=== PATIENT | female | born 1990 | race Caucasian/White ===

== ENCOUNTER 2016-05-20 15:36 | Emergency (ER) | payer SELFPAY ==
--- NOTE | 2016-05-20 16:03 | ER Document Report ---
ED Medical Screen (RME) - General Stated Complaint: BLURRY VISION Mode of Arrival: Ambulatory Information source: Patient Notes: Patient complains of blurred vision for the past week. Patient states that blurred vision has gradually started to worsen. Patient states that eyes have been injected. Vision is worse to right eye. Patient reports a large dark spot in the field of vision of the right eye. Patient denies any headache pain. Patient came at the insistence of family member. hx: None I have greeted and performed a rapid initial assessment of this patient. A comprehensive ED assessment and evaluation of the patient, analysis of test results and completion of the medical decision making process will be conducted by additional ED providers. TRAVEL OUTSIDE OF THE [place] IN LAST 30 DAYS: No - Related Data Allergies/Adverse Reactions: No Known Allergies Allergy (Verified 12/18/15 19:30) Past Medical History - Past Medical History Cardiac Medical History: Reports: Hx Hypertension - PIH first preg Denies: Hx Heart Murmur Renal/ Medical History: Denies: Hx Kidney Stones, Hx Ovarian Cysts, Hx Pelvic Inflammatory Disease Malignancy Medical History: Denies: Hx Breast Cancer, Hx Cervical Cancer, Hx Ovarian Cancer GI Medical History: Reports: Hx Gastroesophageal Reflux Disease. Denies: Hx Hiatal Hernia, Hx Ulcer Musculoskeltal Medical History: Denies Hx Fibromyalgia Traumatic Medical History: Reports: Hx Fractures - hx right radius Past Surgical History: Reports: Hx Section - x 1, Hx Oral Surgery - Immunizations Hx Diphtheria, Pertussis, Tetanus Vaccination: Yes Physical Exam - Vital signs Vitals: Temp Pulse Resp BP Pulse Ox 98.6 F 70 16 116/86 H 99 05/20/16 15:43 05/20/16 15:43 05/20/16 15:43 05/20/16 15:43 05/20/16 15:43 - HEENT Eyes: Normal. No: Tears Conjunctiva: Injected - Mild injected Course - Vital Signs Vital signs: Temp Pulse Resp BP Pulse Ox 98.6 F 70 16 116/86 H 99 05/20/16 15:43 05/20/16 15:43 05/20/16 15:43 05/20/16 15:43 05/20/16 15:43
[2016-05-20] MEDS ORDERED: TETRACAINE HCL 0.5% OPH SOLN 2 ML OU ONE (19:05)
--- NOTE | 2016-05-20 19:50 | ER Document Report ---
ED Eye Complaint - General Chief Complaint: Vision Problem Stated Complaint: BLURRY VISION Mode of Arrival: Ambulatory Notes: Patient is a 25-year-old female presents emergency Department complaining of vision loss in her right eye. Patient states that if over the past 7 days she has had blurry vision in both of her eyes but worse in the right and has gotten worse over the past couple of days now with a dark spot in her right upper quadrant vision field. Patient states that she is able to see out of her right eye and is able to distinguish shapes and words but has difficulty focusing. Otherwise she denies any pain on both eyes. She is not a contact wearer or glasses wearer. Last follow-up with ophthalmology was about 3 years ago. She denies any headache or associated pain but does admit to tenderness. She does have redness in both of her eyes and she's been using Visine which she states has been helping. Otherwise she denies any other past medical history. Has a history of 2. Does not appear primary care provider TRAVEL OUTSIDE OF THE [place] IN LAST 30 DAYS: No - Related Data Allergies/Adverse Reactions: No Known Allergies Allergy (Verified 12/18/15 19:30) Past Medical History - General Information source: Patient - Social History Smoking Status: Never Smoker Family History: Reviewed & Not Pertinent Patient has suicidal ideation: No Patient has homicidal ideation: No - Past Medical History Cardiac Medical History: Reports: Hx Hypertension - PIH first preg Denies: Hx Heart Murmur Renal/ Medical History: Denies: Hx Kidney Stones, Hx Ovarian Cysts, Hx Peritoneal Dialysis, Hx Pelvic Inflammatory Disease Malignancy Medical History: Denies: Hx Breast Cancer, Hx Cervical Cancer, Hx Ovarian Cancer GI Medical History: Reports: Hx Gastroesophageal Reflux Disease. Denies: Hx Hiatal Hernia, Hx Ulcer Musculoskeltal Medical History: Denies Hx Fibromyalgia Traumatic Medical History: Reports: Hx Fractures - hx right radius Past Surgical History: Reports: Hx Section - x 1, Hx Oral Surgery - Immunizations Hx Diphtheria, Pertussis, Tetanus Vaccination: Yes Hx Pneumococcal Vaccination: 04/13/00 Review of Systems - Review of Systems EENT: See HPI Physical Exam - Vital signs Vitals: Temp Pulse Resp BP Pulse Ox 98.6 F 70 16 116/86 H 99 05/20/16 15:43 05/20/16 15:43 05/20/16 15:43 05/20/16 15:43 05/20/16 15:43 - HEENT Head: Normocephalic, Atraumatic Eyes: Normal Conjunctiva: Injected Cornea: Normal - Bilateral. No: Corneal abrasion, Corneal ulcer, Embedded foreign body, Flourescein stain uptake Extraocular movements intact: Yes Eyelashes: Normal Pupils: PERRL Visual acuity- Right eye: 20/50 Visual acuity- Left eye: 20/40 Visual acuity- Both eyes: 20/40 Corrective lenses worn: No Right intraocular pressure: 26 Left intraocular pressure: 18 Lids everted for exam: bilateral: Normal Anterior chamber: Normal Fundascopic: Normal. No: Retinal detachment, Retinal hemorrhage Visual hawk normal: Yes Course - Re-evaluation Re-evalutation: 05/20/16 22:43 Patient is a 25-year-old female presents emergency Department complaining of vision loss that is painless. Patient's history and physical exam did not reveal any evidence of retinal detachment, acute closure glaucoma, corneal abrasion/ulcer or conjunctivitis. Patient discharged home and instructed to follow-up with Dr. Forman tomorrow morning at 9 AM. For evaluation of retinal blood supply. Per [facility] protocol and guidelines, this case was discussed with supervising physician Dr. Ruiz penny prior to discharge - Vital Signs Vital signs: Temp Pulse Resp BP Pulse Ox 98.7 F 67 16 112/76 98 05/20/16 20:45 05/20/16 20:45 05/20/16 20:45 05/20/16 20:45 05/20/16 20:45 Discharge - Discharge Clinical Impression: Vision loss, right eye Condition: Good Disposition: HOME, SELF-CARE Additional Instructions: Please follow up with Dr. Forman tomorrow for complete ophthalmologic evaluation Referrals: GIBSON FORMAN MD [ACTIVE STAFF] - Follow up as needed (please follow up at 9am tomorromw 05/21/2016)
[2016-05-20 20:47] VITALS: BP 112/76
== END 2016-05-20 20:40 | disposition home or self-care (01) ==
LOC: ER 15:36
DX: H54.61 Unqualified visual loss, right eye, normal vision left eye (principal); H53.8 Other visual disturbances
CPT/HCPCS: 99283

== ENCOUNTER → 2016-05-22 | Outpatient (CLI) | payer SELFPAY ==
[2016-05-22 11:27] LABS: ABSOLUTE EOSINOPHILS # (AUTO) 0.1 10^3/uL (0.0-0.6); ABSOLUTE LYMPHOCYTES (AUTO) 1.9 10^3/uL (0.5-4.7); ABSOLUTE MONOCYTES (AUTO) 0.4 10^3/uL (0.1-1.4); ABSOLUTE NEUT (AUTO) 4.8 10^3/uL (1.7-8.2); BASOPHILS % (AUTO) 0.2 % (0-2); EOSINOPHILS % (AUTO) 1.9 % (0-6); HEMATOCRIT 44.4 % (36.0-47.0); HEMOGLOBIN 15.2 g/dL (12.0-15.5); HGB HCT DIFFERENCE 1.2; LYMPHOCYTES % (AUTO) 26.5 % (13-45); MEAN CORPUSCULAR HEMOGLOBIN 29.4 pg (27.0-33.4); MEAN CORPUSCULAR HGB CONC 34.3 g/dL (32.0-36.0); MEAN CORPUSCULAR VOLUME 86 fl (80-97); MONOCYTES % (AUTO) 6.1 % (3-13); RED BLOOD COUNT 5.18 10^6/uL (3.72-5.28); RED CELL DISTRIBUTION WIDTH 13.1 % (11.5-14.0); SEGMENTED NEUTROPHILS % (AUTO) 65.3 % (42-78); WHITE BLOOD COUNT 7.3 10^3/uL (4.0-10.5)
[2016-05-22 11:42] LABS: ALANINE AMINOTRANSFERASE 48 U/L (9-52); ALBUMIN 4.9 g/dL (3.5-5.0); ALKALINE PHOSPHATASE 59 U/L (38-126); ANION GAP 10 (5-19); ASPARTATE AMINO TRANSFERASE 31 U/L (14-36); BILIRUBIN,TOTAL 0.9 mg/dL (0.2-1.3); BLOOD UREA NITROGEN 12 mg/dL (7-20); CALCIUM 9.8 mg/dL (8.4-10.2); CARBON DIOXIDE 26 mmol/L (22-30); CHLORIDE 106 mmol/L (98-107); CREATININE RESULT 0.77 mg/dL (0.52-1.25); GLUCOSE 95 mg/dL (75-110); POTASSIUM 4.3 mmol/L (3.6-5.0); SODIUM 141.7 mmol/L (137-145); TOTAL PROTEIN 7.5 g/dL (6.3-8.2)
[2016-05-23 12:28] LABS: ANGIOTENSIN-CONVERTING ENZYME 28 U/L (14-82)
[2016-05-23 13:38] LABS: BARTONELLA HENSELAE IGG Negative titer (Neg:<1:320); BARTONELLA HENSELAE IGM Negative titer (Neg:<1:100)
[2016-05-23 14:21] LABS: BARTONELLA QUINTANA IGM Negative titer (Neg:<1:100)
[2016-05-23 14:22] LABS: LYME DISEASE IGG AND IGM AB <0.91 ISR (0.00-0.90)
[2016-05-28 13:38] LABS: QUANTIFERON TB ANTIGEN VALUE 0.28 IU/mL (.); QUANTIFERON TB NIL VALUE 0.11 IU/mL (.)
== END ==
LOC: LAB 10:57
PROVIDERS: ATTEND Ophthalmology
DX: H54.7 Unspecified visual loss (principal)
CPT/HCPCS: 36415; 80053; 82164; 85025; 86317; 86430; 86480; 86592; 86617; 86618

== ENCOUNTER 2016-11-19 19:08 | Emergency (ER) | payer SELFPAY ==
[2016-11-19] MEDS ORDERED: PENICILLIN V POTASSIUM 500 MG TABLET PO ONE (20:00)
--- NOTE | 2016-11-19 20:06 | ER Document Report ---
HPI - HPI Patient complains to provider of: sore throat Pain Level: 2 Context: 26 yo female c/o sore throat x 3 days. no fever, no cough, no post nasal drip. + left ear pain and swollen lymph nodes Associated Symptoms: None Exacerbated by: Denies Relieved by: Denies Similar symptoms previously: No Recently seen / treated by doctor: No - ROS Systems Reviewed and Negative: Yes All other systems reviewed and negative - REPRODUCTIVE Reproductive: REPORTS: : - DERM Skin Color: Normal, [place] Past Medical History - General Information source: Patient - Social History Smoking Status: Never Smoker Frequency of alcohol use: None Drug Abuse: None Lives with: Family Family History: Reviewed & Not Pertinent Patient has suicidal ideation: No Patient has homicidal ideation: No - Medical History Medical History: Other - VKH - opthomologic disease - Past Medical History Cardiac Medical History: Reports: Hx Hypertension - PIH first preg Denies: Hx Heart Murmur Renal/ Medical History: Denies: Hx Kidney Stones, Hx Ovarian Cysts, Hx Peritoneal Dialysis, Hx Pelvic Inflammatory Disease Malignancy Medical History: Denies: Hx Breast Cancer, Hx Cervical Cancer, Hx Ovarian Cancer GI Medical History: Reports: Hx Gastroesophageal Reflux Disease. Denies: Hx Hiatal Hernia, Hx Ulcer Musculoskeltal Medical History: Denies Hx Fibromyalgia Traumatic Medical History: Reports: Hx Fractures - hx right radius Past Surgical History: Reports: Hx Section - x 1, Hx Oral Surgery - Immunizations Hx Diphtheria, Pertussis, Tetanus Vaccination: Yes Hx Pneumococcal Vaccination: 04/13/00 Vertical Provider Document - CONSTITUTIONAL Agree With Documented VS: Yes Exam Limitations: No Limitations General Appearance: WD/WN - INFECTION CONTROL TRAVEL OUTSIDE OF THE [place] IN LAST 30 DAYS: No - HEENT HEENT: Atraumatic, PERRLA, Pharyngeal Exudate, Pharyngeal Tenderness, Pharyngeal Erythema - NECK Neck: Lymphadenopathy-Left - post auricular nodes - RESPIRATORY Respiratory: Breath Sounds Normal, No Respiratory Distress O2 Sat by Pulse Oximetry: 100 - CARDIOVASCULAR Cardiovascular: Regular Rate, Regular Rhythm - MUSCULOSKELETAL/EXTREMETIES Musculoskeletal/Extremeties: MAEW - NEURO Level of Consciousness: Awake, Alert, Appropriate - DERM Integumentary: Warm, Dry Course - Vital Signs Vital signs: Temp Pulse Resp BP Pulse Ox 98.9 F 70 15 133/73 H 100 11/19/16 19:27 11/19/16 19:27 11/19/16 19:27 11/19/16 19:27 11/19/16 19:27 Discharge - Discharge Clinical Impression: Sore throat Condition: Stable Disposition: HOME, SELF-CARE Instructions: Sore Throat ([facility] [place]), Penicillin V K ([facility]) Additional Instructions: Take all antibiotic as prescribed lozenges salt water gargles change toothbrush in 2 days Prescriptions: Fluconazole [Diflucan] 150 mg PO ONCE PRN #1 tablet PRN Reason: Penicillin V Potassium 500 mg PO BID #20 tablet
[2016-11-19 22:43] VITALS: BP 118/78
== END 2016-11-19 20:25 | disposition home or self-care (01) ==
LOC: ER 19:08
DX: O99.519 Diseases of the respiratory system complicating pregnancy, unspecified trimester (principal); J02.9 Acute pharyngitis, unspecified; O26.899 Other specified pregnancy related conditions, unspecified trimester; H92.02 Otalgia, left ear; R56.9 Unspecified convulsions; Z3A.00 Weeks of gestation of pregnancy not specified
CPT/HCPCS: 99282

== ENCOUNTER 2017-02-22 17:15 | Emergency (ER) | payer SELFPAY ==
[2017-02-22 17:21] VITALS: BP 115/77
--- NOTE | 2017-02-22 18:31 | ER Document Report ---
HPI - HPI Patient complains to provider of: Runny nose, sore throat, dry cough Pain Level: 3 Context: Patient is a 26-year-old female patient presents to the emergency department complaining of sinus congestion, sore throat, dry cough for approximately 1 week. States she moved into a new house and since then has been having the symptoms. She states that her kids have also been sick at home and she want to be evaluated to make sure she had a strep throat. She thinks that she can see exudates on her left tonsil. Otherwise denies any fever, chills, difficulty swallowing, difficulty breathing, chest pain, nausea or vomiting. - REPRODUCTIVE Reproductive: REPORTS: : - DERM Skin Color: Normal Past Medical History - Social History Smoking Status: Never Smoker Chew tobacco use (# tins/day): No Frequency of alcohol use: Occasional Drug Abuse: None Family History: Reviewed & Not Pertinent Patient has suicidal ideation: No Patient has homicidal ideation: No - Past Medical History Cardiac Medical History: Reports: Hx Hypertension - PIH first preg Denies: Hx Heart Murmur Renal/ Medical History: Denies: Hx Kidney Stones, Hx Ovarian Cysts, Hx Peritoneal Dialysis, Hx Pelvic Inflammatory Disease Malignancy Medical History: Denies: Hx Breast Cancer, Hx Cervical Cancer, Hx Ovarian Cancer GI Medical History: Reports: Hx Gastroesophageal Reflux Disease. Denies: Hx Hiatal Hernia, Hx Ulcer Musculoskeltal Medical History: Denies Hx Fibromyalgia Traumatic Medical History: Reports: Hx Fractures - hx right radius Past Surgical History: Reports: Hx Section - x 1, Hx Oral Surgery - Immunizations Hx Diphtheria, Pertussis, Tetanus Vaccination: Yes Hx Pneumococcal Vaccination: 04/13/00 Vertical Provider Document - CONSTITUTIONAL Agree With Documented VS: Yes Exam Limitations: No Limitations General Appearance: WD/WN, No Apparent Distress Notes: PHYSICAL EXAM GENERAL: Alert, interacts well. HEAD: Normocephalic, atraumatic. EYES: Pupils equal, round, and reactive to light. Extraocular movements intact. ENT: Oral mucosa moist, tongue midline. Uvula midline. Airway patent. No evidence of tonsillar enlargement, peritonsillar abscess. NECK: Full range of motion. Supple. Trachea midline. LUNGS: Clear to auscultation bilaterally, no wheezes, rales, or rhonchi. No respiratory distress. HEART: Regular rate and rhythm. No murmurs, gallops, or rubs. ABDOMEN: Soft, nondistended, nontender. No guarding, rebound, or rigidity.. Bowel sounds present in all 4 quadrants. EXTREMITIES: Moves all 4 extremities spontaneously. No edema, radial and dorsalis pedis pulses 2/4 bilaterally. No cyanosis. NEUROLOGICAL: Alert and oriented x4. Normal speech. PSYCH: Normal affect, normal mood. SKIN: Warm, dry, normal turgor. No rashes or lesions noted. - INFECTION CONTROL TRAVEL OUTSIDE OF THE [place] IN LAST 30 DAYS: No - RESPIRATORY O2 Sat by Pulse Oximetry: 99 Course - Re-evaluation Re-evalutation: 02/22/17 18:29 Presentation is most consistent with a viral upper respiratory infection. Patient is overall well appearance, vitals within normal limits, well-hydrated. Patient denies any headache, neck pain, and has no evidence of meningismus on examination. Lungs are clear bilaterally. No evidence of respiratory distress. Based on clinical exam and history, I do not suspect an acute pneumonia, meningitis, strep pharyngitis, or an acute encephalitis. No laboratory or imaging testing is indicated at this time. Will discharge patient with return precautions and followup recommendations. They are in agreement this plan have verbalized understanding return precautions. - Vital Signs Vital signs: Temp Pulse Resp BP Pulse Ox 98.5 F 60 14 115/77 99 02/22/17 17:18 02/22/17 17:18 02/22/17 17:18 02/22/17 17:18 02/22/17 17:18 Discharge - Discharge Clinical Impression: Rhinorrhea Condition: Good Disposition: HOME, SELF-CARE Instructions: Decongestant-Antihistamine Medication ([facility]), Hay Fever ([facility]) Additional Instructions: Buy [id number] pseudoephedrine, Claritin D/Yesica-D/Zyrtec-D for decongestant antihistamine benefit. You can also use TheraFlu p.m. Referrals: GARO LEYVA MD [COMMUNITY BASED STAFF] - Follow up as needed
== END 2017-02-22 18:40 | disposition home or self-care (01) ==
LOC: ER 17:15
DX: J34.89 Other specified disorders of nose and nasal sinuses (principal); R09.81 Nasal congestion; J02.9 Acute pharyngitis, unspecified; R05 Cough
CPT/HCPCS: 87070; 87880; 99283

== ENCOUNTER 2017-05-29 04:02 | Emergency (ER) | payer SELFPAY ==
[2017-05-29] MEDS ORDERED: ONDANSETRON HCL INJ/PF 4 MG/2 ML SDV IV ONE (04:46)
[2017-05-29] MEDS ORDERED: NORMAL SALINE 1000 ML 1,000 ML IV ONE ×2 (04:46→05:40)
[2017-05-29] MEDS ORDERED: KETOROLAC TROMETHAMINE INJ/PF 30 MG/1 ML SDV IV ONE (04:46)
[2017-05-29 05:11] LABS: ABSOLUTE LYMPHOCYTES (AUTO) 0.7 10^3/uL (0.5-4.7); ABSOLUTE MONOCYTES (AUTO) 0.4 10^3/uL (0.1-1.4); ABSOLUTE NEUT (AUTO) 10.2 10^3/uL (1.7-8.2); BASOPHILS % (AUTO) 0.1 % (0-2); EOSINOPHILS % (AUTO) 0.2 % (0-6); HEMATOCRIT 41.1 % (36.0-47.0); HEMOGLOBIN 14.4 g/dL (12.0-15.5); LYMPHOCYTES % (AUTO) 6.4 % (13-45); MEAN CORPUSCULAR HEMOGLOBIN 29.4 pg (27.0-33.4); MEAN CORPUSCULAR HGB CONC 35.1 g/dL (32.0-36.0); MEAN CORPUSCULAR VOLUME 84 fl (80-97); MONOCYTES % (AUTO) 3.8 % (3-13); PLATELET COUNT 297 10^3/uL (150-450); RED CELL DISTRIBUTION WIDTH 12.3 % (11.5-14.0); SEGMENTED NEUTROPHILS % (AUTO) 89.5 % (42-78); TOTAL CELLS COUNTED % (AUTO) 100 %; WHITE BLOOD COUNT 11.4 10^3/uL (4.0-10.5)
[2017-05-29 05:27] LABS: ALANINE AMINOTRANSFERASE 28 U/L (9-52); ALBUMIN 4.7 g/dL (3.5-5.0); ALKALINE PHOSPHATASE 51 U/L (38-126); ANION GAP 15 (5-19); ASPARTATE AMINO TRANSFERASE 29 U/L (14-36); BILIRUBIN,DIRECT 0.2 mg/dL (0.0-0.4); BILIRUBIN,TOTAL 0.6 mg/dL (0.2-1.3); BLOOD UREA NITROGEN 12 mg/dL (7-20); CALCIUM 9.9 mg/dL (8.4-10.2); CARBON DIOXIDE 19 mmol/L (22-30); CHLORIDE 106 mmol/L (98-107); GLUCOSE 126 mg/dL (75-110); LIPASE 50.4 U/L (23-300); POTASSIUM 4.3 mmol/L (3.6-5.0); SODIUM 140.4 mmol/L (137-145)
[2017-05-29] MEDS ORDERED: FAMOTIDINE 20 MG TABLET PO ONE (05:40)
[2017-05-29] MEDS ORDERED: HYDROCODONE/ACETAMINOPHEN 5-325 MG TABLET PO ONE (05:40)
[2017-05-29] MEDS ORDERED: SUCRALFATE 1 GM TABLET PO ONE (05:40)
--- NOTE | 2017-05-29 05:40 | ER Document Report ---
ED GI/ - General Chief Complaint: Nausea/Vomiting/Diarrhea Stated Complaint: VOMITING Time Seen by Provider: 05/29/17 04:34 Notes: Patient is a 26-year-old female who comes emergency department for chief complaint of upper abdominal pain and vomiting started tonight. She states she has vomited about a dozen times. She reports normal bowel movement within the past 24 hours. She denies fever or chills, obvious sick contacts. She states that she has had a toothache recently and has been taking ibuprofen and aspirin around the clock for this. She denies any daily medications, PMH GERD and c- section. LMP within the past month. TRAVEL OUTSIDE OF THE [place] IN LAST 30 DAYS: No - Related Data Allergies/Adverse Reactions: No Known Allergies Allergy (Verified 02/22/17 17:18) Past Medical History - General Information source: Patient - Social History Smoking Status: Never Smoker Chew tobacco use (# tins/day): No Frequency of alcohol use: None Drug Abuse: None Lives with: Family Family History: Reviewed & Not Pertinent Patient has suicidal ideation: No Patient has homicidal ideation: No - Past Medical History Cardiac Medical History: Reports: Hx Hypertension - PIH first preg Denies: Hx Heart Murmur Renal/ Medical History: Denies: Hx Kidney Stones, Hx Ovarian Cysts, Hx Peritoneal Dialysis, Hx Pelvic Inflammatory Disease Malignancy Medical History: Denies: Hx Breast Cancer, Hx Cervical Cancer, Hx Ovarian Cancer GI Medical History: Reports: Hx Gastroesophageal Reflux Disease. Denies: Hx Hiatal Hernia, Hx Ulcer Musculoskeltal Medical History: Denies Hx Fibromyalgia Traumatic Medical History: Reports: Hx Fractures - hx right radius Past Surgical History: Reports: Hx Section - x 1, Hx Oral Surgery - Immunizations Hx Diphtheria, Pertussis, Tetanus Vaccination: Yes Hx Pneumococcal Vaccination: 04/13/00 Review of Systems - Review of Systems Constitutional: No symptoms reported EENT: No symptoms reported Cardiovascular: No symptoms reported Respiratory: No symptoms reported Gastrointestinal: See HPI Genitourinary: No symptoms reported Female Genitourinary: No symptoms reported Musculoskeletal: No symptoms reported Skin: No symptoms reported Hematologic/Lymphatic: No symptoms reported Neurological/Psychological: No symptoms reported Physical Exam - Vital signs Vitals: Temp Pulse Resp BP Pulse Ox 98.1 F 91 20 139/68 H 99 05/29/17 04:20 05/29/17 04:20 05/29/17 04:20 05/29/17 04:20 05/29/17 04:20 Interpretation: Normal - General General appearance: Anxious In distress: Mild - Patient looks uncomfortable, shifting in the bed - HEENT Head: Normocephalic, Atraumatic Eyes: Normal Conjunctiva: Normal Extraocular movements intact: Yes Eyelashes: Normal Pupils: PERRL Mouth/Lips: Normal Mucous membranes: Normal Pharynx: Normal Neck: Normal - Respiratory Respiratory status: No respiratory distress Chest status: Nontender Breath sounds: Normal. No: Decreased air movement, Wheezing Chest palpation: Normal - Cardiovascular Rhythm: Regular. No: Tachycardia Heart sounds: Normal auscultation, S1 appreciated, S2 appreciated Murmur: No - Abdominal Inspection: Normal Distension: No distension Bowel sounds: Normal Tenderness: Tender - Tender in the epigastric area, mild generalized tenderness in the remaining abdomen but no guarding, no rigidity, no rebound tenderness Organomegaly: No organomegaly - Back Back: Normal, Nontender - Extremities General upper extremity: Normal inspection, Nontender, Normal strength, Normal temperature General lower extremity: Normal inspection, Nontender, Normal strength, Normal temperature - Neurological Neuro grossly intact: Yes Cognition: Normal Orientation: AAOx4 López Coma Scale Eye Opening: Spontaneous López Coma Scale Verbal: Oriented Sparks Coma Scale Motor: Obeys Commands Sparks Coma Scale Total: 15 Speech: Normal Motor strength normal: LUE, RUE, LLE, RLE Sensory: Normal - Psychological Associated symptoms: Anxious - Skin Skin Temperature: Warm Skin Moisture: Dry Skin Color: Normal Course - Re-evaluation Re-evalutation: Patient responded well to IV medication, IV fluids, she states she feels improved but still feels some pain in her stomach. Given oral medication, tolerated without difficulty. Symptoms significantly improved and almost resolved. CBC shows mild leukocytosis with no bandemia, chemistry shows low bicarbonate at 19, urinalysis shows elevated specific gravity. There is generalized abdominal tenderness, worse in the epigastric area, however based on patient's history of taking a lot of ibuprofen and aspirin over the past week along with her reported history of GERD (she was on Nexium in the past but not anymore), I discussed with patient, based on her chemistry this is much more likely bad gastritis, ultrasound deferred at this time. Patient will be treated for gastritis, discussed recommendations, follow-up, return precautions. Patient and family state understanding and agreement. - Vital Signs Vital signs: Temp Pulse Resp BP Pulse Ox 98.1 F 91 20 139/68 H 99 05/29/17 04:20 05/29/17 04:20 05/29/17 04:20 05/29/17 04:20 05/29/17 04:20 - Laboratory Result Diagrams: 05/29/17 04:58 05/29/17 04:58 Laboratory results interpreted by me: 05/29/17 05/29/17 05/29/17 04:58 04:58 04:58 WBC 11.4 H Seg Neutrophils % 89.5 H Lymphocytes % 6.4 L Absolute Neutrophils 10.2 H Carbon Dioxide 19 L Glucose 126 H Urine Protein 30 H Discharge - Discharge Clinical Impression: Upper abdominal pain Vomiting Qualifiers: Vomiting type: unspecified Vomiting Intractability: non-intractable Nausea presence: with nausea Qualified Code(s): R11.2 - Nausea with vomiting, unspecified Condition: Stable Disposition: HOME, SELF-CARE Additional Instructions: Your examination is consistent with gastritis. Stop the ibuprofen and aspirin, you can take Tylenol/acetaminophen for pain instead. Avoid caffeine, spicy food , smoking, alcohol. Take Nexium and Carafate as prescribed, you can add Pepcid , Tums, Rolaids, etc. if needed additionally. Start with clear fluids, progress to bland diet, progress to normal as tolerated. Follow-up with primary care for additional evaluation and management. Return for any concerning or worsening symptoms including returned vomiting, vomiting blood, black stools, severe pain, fever of 100.4 or greater, or any other concerning symptoms. Prescriptions: Esomeprazole Mag Trihydrate [Nexium] 40 mg PO DAILY #30 capsule. Promethazine HCl [Phenergan 25 mg Tablet] 1 - 2 tab PO Q6H PRN #15 tablet PRN Reason: Sucralfate [Carafate 1 gm Tablet] 1 gm PO QID #20 tablet Forms: Return to Work
[2017-05-29 06:03] LABS: APPEARANCE,URINE SLIGHTLY-CLOUDY; BILIRUBIN,URINE NEGATIVE (NEGATIVE); COLOR,URINE YELLOW; GLUCOSE, URINE NEGATIVE (NEGATIVE); KETONES,URINE NEGATIVE (NEGATIVE); LEUKOCYTE ESTERASE,URINE NEGATIVE (NEGATIVE); NITRITE,URINE NEGATIVE (NEGATIVE); PROTEIN,URINE 30 mg/dL (NEGATIVE); URINE SPECIFIC GRAVITY 1.026; UROBILINOGEN,URINE NEGATIVE mg/dL (<2.0)
[2017-05-29] MEDS ORDERED: PROMETHAZINE HCL INJ 25 MG/1 ML VIAL IM ONE (07:09)
[2017-05-29 07:56] VITALS: BP 118/71
== END 2017-05-29 07:54 | disposition home or self-care (01) ==
LOC: ER 04:02
DX: R10.10 Upper abdominal pain, unspecified (principal); R11.2 Nausea with vomiting, unspecified; R19.7 Diarrhea, unspecified; K08.89 Other specified disorders of teeth and supporting structures
CPT/HCPCS: 99284; 96361; 96374; 96375; 36415; 83690; 85025; 81025; 80053; 81001; J1885; J2550; J2405; J7030

== ENCOUNTER 2017-07-13 20:07 | Emergency (ER) | payer SELFPAY ==
--- NOTE | 2017-07-13 20:35 | ER Document Report ---
ED Medical Screen (RME) - General Chief Complaint: Cough Stated Complaint: CHEST PAIN Time Seen by Provider: 07/13/17 20:29 TRAVEL OUTSIDE OF THE [place] IN LAST 30 DAYS: No - HPI Notes: 07/13/17 20:34 Chest pain feeling unwell muscle aches - Related Data Allergies/Adverse Reactions: No Known Allergies Allergy (Verified 07/13/17 20:08) Past Medical History - Social History Frequency of alcohol use: Occasional Drug Abuse: None - Past Medical History Cardiac Medical History: Reports: Hx Hypertension - PIH first preg Denies: Hx Heart Murmur Renal/ Medical History: Denies: Hx Kidney Stones, Hx Ovarian Cysts, Hx Peritoneal Dialysis, Hx Pelvic Inflammatory Disease Malignancy Medical History: Denies: Hx Breast Cancer, Hx Cervical Cancer, Hx Ovarian Cancer GI Medical History: Reports: Hx Gastroesophageal Reflux Disease. Denies: Hx Hiatal Hernia, Hx Ulcer Musculoskeltal Medical History: Denies Hx Fibromyalgia Traumatic Medical History: Reports: Hx Fractures - hx right radius Past Surgical History: Reports: Hx Section - x 1, Hx Oral Surgery - Immunizations Hx Diphtheria, Pertussis, Tetanus Vaccination: Yes Review of Systems - Review of Systems Cardiovascular: Chest pain Musculoskeletal: Muscle pain Physical Exam - Vital signs Vitals: Temp Pulse Resp BP Pulse Ox 99.3 F 99 16 130/76 H 98 07/13/17 20:12 07/13/17 20:12 07/13/17 20:12 07/13/17 20:12 07/13/17 20:12 - Respiratory Respiratory status: No respiratory distress Chest status: Nontender Breath sounds: Normal Chest palpation: Normal Course - Vital Signs Vital signs: Temp Pulse Resp BP Pulse Ox 99.3 F 99 16 130/76 H 98 07/13/17 20:12 07/13/17 20:12 07/13/17 20:12 07/13/17 20:12 07/13/17 20:12
--- NOTE | 2017-07-13 21:22 | RADIOLOGY REPORT (SQ) ---
EXAM DESCRIPTION: CHEST 2 VIEWS COMPLETED DATE/TIME: 07/13/2017 8:56 pm REASON FOR STUDY: cough COMPARISON: 08/31/2015 EXAM PARAMETERS: NUMBER OF VIEWS: two views TECHNIQUE: Digital Frontal and Lateral radiographic views of the chest acquired. RADIATION DOSE: NA LIMITATIONS: none FINDINGS: LUNGS AND PLEURA: No opacities, masses or pneumothorax. No pleural effusion. MEDIASTINUM AND HILAR STRUCTURES: No masses or contour abnormalities. HEART AND VASCULAR STRUCTURES: Heart normal size. No evidence for failure. BONES: No acute findings. HARDWARE: None in the chest. OTHER: No other significant finding. IMPRESSION: NO ACUTE RADIOGRAPHIC FINDING IN THE CHEST. TECHNICAL DOCUMENTATION: JOB ID: [id number]- All Rights Reserved Reading location - IP/workstation name: [email or web address]
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
[2017-07-13] MEDS ORDERED: IBUPROFEN 600 MG TABLET PO ONE (22:18)
[2017-07-13 22:38] VITALS: BP 124/84
--- NOTE | 2017-07-14 22:44 | EKG REPORT ---
SEVERITY:- OTHERWISE NORMAL ECG - SINUS RHYTHM BORDERLINE RIGHT AXIS DEVIATION : Confirmed by: Cristian Gilmore 14-Jul-2017 22:44:14
== END 2017-07-13 22:38 | disposition home or self-care (01) ==
LOC: ER 20:07
DX: J06.9 Acute upper respiratory infection, unspecified (principal); B97.89 Other viral agents as the cause of diseases classified elsewhere; R05 Cough; R07.89 Other chest pain; R50.9 Fever, unspecified; R09.89 Other specified symptoms and signs involving the circulatory and respiratory systems
CPT/HCPCS: 71046; 93005; 93010; 99285

== ENCOUNTER 2017-07-18 12:27 | Emergency (ER) | payer SELFPAY ==
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
[2017-07-18] MEDS ORDERED: IPRATROPIUM/ALBUTEROL 0.5-2.5 MG/3 ML AMPUL NEB ONE (13:05)
[2017-07-18] MEDS ORDERED: ONDANSETRON 4 MG TAB.RAPDIS PO ONE (13:21)
[2017-07-18 14:11] VITALS: BP 112/71
== END 2017-07-18 14:11 | disposition home or self-care (01) ==
LOC: ER 12:27
DX: J40 Bronchitis, not specified as acute or chronic (principal); R11.0 Nausea; R06.2 Wheezing; R19.7 Diarrhea, unspecified; R05 Cough; R09.81 Nasal congestion; M79.1 Myalgia; R53.83 Other fatigue; I10 Essential (primary) hypertension
CPT/HCPCS: 94640; 99283; S0119; J7620

== ENCOUNTER 2018-02-04 13:44 | Emergency (ER) | payer SELFPAY ==
[2018-02-04 15:43] LABS: HEMATOCRIT 43.1 % (36.0-47.0); HEMOGLOBIN 14.9 g/dL (12.0-15.5); MEAN CORPUSCULAR HEMOGLOBIN 29.8 pg (27.0-33.4); MEAN CORPUSCULAR HGB CONC 34.5 g/dL (32.0-36.0); MEAN CORPUSCULAR VOLUME 86 fl (80-97); PLATELET COUNT 325 10^3/uL (150-450); RED BLOOD COUNT 4.99 10^6/uL (3.72-5.28); WHITE BLOOD COUNT 6.4 10^3/uL (4.0-10.5)
[2018-02-04 15:53] LABS: APPEARANCE,URINE CLEAR; BILIRUBIN,URINE NEGATIVE (NEGATIVE); COLOR,URINE YELLOW; GLUCOSE, URINE NEGATIVE (NEGATIVE); KETONES,URINE TRACE mg/dL (NEGATIVE); LEUKOCYTE ESTERASE,URINE NEGATIVE (NEGATIVE); NITRITE,URINE NEGATIVE (NEGATIVE); PROTEIN,URINE NEGATIVE (NEGATIVE); URINE SPECIFIC GRAVITY 1.021; UROBILINOGEN,URINE NEGATIVE mg/dL (<2.0)
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
[2018-02-04 17:36] VITALS: BP 136/78
== END 2018-02-04 17:36 | disposition home or self-care (01) ==
LOC: ER 13:44
DX: N93.8 Other specified abnormal uterine and vaginal bleeding (principal); R40.2412 Glasgow coma scale score 13-15, at arrival to emergency department
CPT/HCPCS: 36415; 81001; 84702; 85027; 99284

== ENCOUNTER 2018-04-16 23:58 | Emergency (ER) | payer SELFPAY ==
[2018-04-17 00:10] VITALS: BP 118/59
== END 2018-04-17 00:19 | disposition left against medical advice (07) ==
LOC: ER 23:58
DX: Z53.21 Procedure and treatment not carried out due to patient leaving prior to being seen by health care provider (principal)

== ENCOUNTER 2018-06-10 16:07 | Emergency (ER) | payer BC ==
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
[2018-06-10 18:05] LABS: APPEARANCE,URINE SLIGHTLY-CLOUDY; BILIRUBIN,URINE NEGATIVE (NEGATIVE); COLOR,URINE YELLOW; GLUCOSE, URINE NEGATIVE (NEGATIVE); KETONES,URINE NEGATIVE (NEGATIVE); LEUKOCYTE ESTERASE,URINE NEGATIVE (NEGATIVE); NITRITE,URINE NEGATIVE (NEGATIVE); PROTEIN,URINE NEGATIVE (NEGATIVE); URINE SPECIFIC GRAVITY 1.023
[2018-06-10 18:36] VITALS: BP 124/58
--- NOTE | 2018-06-11 04:08 | RADIOLOGY REPORT (SQ) ---
CLINICAL HISTORY: Left calf swelling COMPARISON: None. 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 The left calf veins are patent. IMPRESSION: No DVT.
--- NOTE | 2018-06-15 09:48 | XCELERA REPORT ---
[address] [place] [facility] [address] Lower Extremity Venous Evaluation Procedure: Color flow and duplex imaging of the veins of the left lower extremity as well as the right Common Femoral vein. Right Sided Venous Evaluation The right common femoral vein is fully compressible. Spontaneous and phasic flow is present in the right common femoral vein. Left Sided Venous Evaluation Normal vessel filling wall to wall, compression and augmentation as well as Colour flow down to the infrageniculate veins. Interpretation Summary No duplex evidence of DVT or obstruction in the left lower extremity nor in the right Common Femoral vein. Name: EDITH RODASMITCH Hutson Age: 28 yrs Gender: Female : 1990 Patient Status: Emergency Patient Location: ER Study Date: 06/10/2018 05:33 PM Reason For Study: Left calf swelling Ordering Physician: GUILLERMINA ROJAS Performed By: Libia Lozano : GUILLERMINA ROJAS > Rob Sewell
== END 2018-06-10 18:36 | disposition home or self-care (01) ==
LOC: ER 16:07
DX: M79.662 Pain in left lower leg (principal); M79.89 Other specified soft tissue disorders; Z79.3 Long term (current) use of hormonal contraceptives
CPT/HCPCS: 81001; 81025; 93971; 99284

== ENCOUNTER 2018-06-27 13:19 | Emergency (ER) | payer BC ==
[2018-06-27 13:26] VITALS: BP 118/75
[2018-06-27] MEDS ORDERED: IBUPROFEN 600 MG TABLET PO ONE (14:13)
[2018-06-27] MEDS ORDERED: ACETAMINOPHEN 325 MG TABLET PO ONE (14:13)
--- NOTE | 2018-06-27 14:15 | ER Document Report ---
HPI - HPI Time Seen by Provider: 06/27/18 14:08 Pain Level: 3 Context: Patient is a 28-year-old female who presents to the emergency department with a chief complaint of right knee pain. She did a back flip on a trampoline and her right knee hit the spring of the trampoline. There was a net. She denies hitting her head. She has been able to walk with crutches she had at home. She denies any past medical history and denies any medication use. She is not taking any ibuprofen or Tylenol for the pain. She does also have a bruise to her left knee, but she states that it does not hurt as much and is only bruised. - ROS Systems Reviewed and Negative: Yes All other systems reviewed and negative - REPRODUCTIVE Reproductive: DENIES: : - MUSCULOSKELETAL Musculoskeletal: REPORTS: Extremity pain - R knee Past Medical History - General Information source: Patient - Social History Smoking Status: Former Smoker Chew tobacco use (# tins/day): No Frequency of alcohol use: Occasional Drug Abuse: None Family History: Reviewed & Not Pertinent Patient has suicidal ideation: No Patient has homicidal ideation: No - Past Medical History Cardiac Medical History: Reports: Hx Hypertension - PIH first preg Denies: Hx Heart Murmur Renal/ Medical History: Denies: Hx Kidney Stones, Hx Ovarian Cysts, Hx Peritoneal Dialysis, Hx Pelvic Inflammatory Disease Malignancy Medical History: Denies: Hx Breast Cancer, Hx Cervical Cancer, Hx Ovarian Cancer GI Medical History: Reports: Hx Gastroesophageal Reflux Disease. Denies: Hx Hiatal Hernia, Hx Ulcer Musculoskeletal Medical History: Denies Hx Fibromyalgia Traumatic Medical History: Reports: Hx Fractures - hx right radius Past Surgical History: Reports: Hx Section - x 2, Hx Oral Surgery - Immunizations Hx Diphtheria, Pertussis, Tetanus Vaccination: Yes Hx Pneumococcal Vaccination: 04/13/00 Vertical Provider Document - CONSTITUTIONAL Agree With Documented VS: Yes Exam Limitations: No Limitations General Appearance: No Apparent Distress - INFECTION CONTROL TRAVEL OUTSIDE OF THE [place] IN LAST 30 DAYS: No - HEENT HEENT: Atraumatic, Normocephalic, PERRLA - NECK Neck: Normal Inspection - RESPIRATORY Respiratory: No Respiratory Distress - CARDIOVASCULAR Cardiovascular: Regular Rate - MUSCULOSKELETAL/EXTREMETIES Musculoskeletal/Extremeties: FROM, Tender - Right knee - NEURO Level of Consciousness: Awake, Alert, Appropriate Motor/Sensory: No Motor Deficit, No Sensory Deficit - DERM Integumentary: Warm, Dry Notes: Abrasion and very mild nonpitting edema noted to right knee. Ecchymosis but no edema noted to the left knee. Course - Re-evaluation Re-evalutation: 06/27/18 14:18 Patient will be sent for a right knee x-ray. She will be given ibuprofen and acetaminophen for pain relief. 06/27/18 15:00 Patient's x-ray is negative for any acute fracture. She will be sent home with an Cirilo wrap and crutches with acetaminophen and ibuprofen for pain relief. She will follow-up with her primary care in the next 3-5 days. Verbal discharge instructions were given to the patient. They verbalized understanding. They are stable for discharge. - Vital Signs Vital signs: Temp Pulse Resp BP Pulse Ox 98.4 F 74 18 118/75 99 06/27/18 13:25 06/27/18 13:25 06/27/18 13:25 06/27/18 13:25 06/27/18 13:25 Discharge - Discharge Clinical Impression: Right knee injury Qualifiers: Encounter type: initial encounter Qualified Code(s): S89.91XA - Unspecified injury of right lower leg, initial encounter Condition: Stable Disposition: HOME, SELF-CARE Instructions: Use of Crutches ([facility]), Ice & Elevation ([facility]) Additional Instructions: You were seen today in the emergency department for right knee pain. Please rest the area, ice it (20 minutes on, 20 minutes off), keep an Cirilo wrap around it, and elevate your leg. Please use crutches for comfort. You can take 1000 mg of acetaminophen and 600 mg of ibuprofen every 6 hours as needed for your pain. Follow-up with your primary care provider this next week in regards to this visit. If you have worsening symptoms, or unable to walk, or have any symptoms that are worrisome to you, please return to the emergency department or follow-up with your primary care provider. Referrals: MAGDI ESQUIVEL MD [Primary Care Provider] - Follow up in 3-5 days
--- NOTE | 2018-06-27 14:54 | RADIOLOGY REPORT (SQ) ---
EXAM DESCRIPTION: KNEE RIGHT 4 VIEWS COMPLETED DATE/TIME: 06/27/2018 2:29 pm REASON FOR STUDY: knee injury COMPARISON: None. NUMBER OF VIEWS: Four views. TECHNIQUE: AP, lateral, and both oblique radiographic images acquired of the right knee. LIMITATIONS: None. FINDINGS: MINERALIZATION: Normal. BONES: No acute fracture or dislocation. No worrisome bone lesions. JOINT: No effusion. SOFT TISSUES: No radiopaque foreign body. No subcutaneous gas. OTHER: No other significant finding. IMPRESSION: No acute fracture or dislocation of the right knee. TECHNICAL DOCUMENTATION: JOB ID: [id number] [employer]- All Rights Reserved Reading location - IP/workstation name: [email or web address]
== END 2018-06-27 15:04 | disposition home or self-care (01) ==
LOC: ER 13:19
DX: S89.91XA Unspecified injury of right lower leg, initial encounter (principal); W22.09XA Striking against other stationary object, initial encounter
CPT/HCPCS: 99283

== ENCOUNTER 2019-02-19 12:38 | Emergency (ER) | payer BC ==
[2019-02-19] MEDS ORDERED: NORMAL SALINE 500 ML IV ONE (13:21)
--- NOTE | 2019-02-19 13:28 | ER Document Report ---
ED General - General Chief Complaint: Pelvic Pain Stated Complaint: DIZZINESS,LEFT SIDE FLANK PAIN Time Seen by Provider: 02/19/19 13:03 TRAVEL OUTSIDE OF THE [place] IN LAST 30 DAYS: No - HPI Notes: This is a 28-year-old female who presents today with a complaint of left suprapubic pain that started about 2 hours prior to ED arrival. She describes sharp pain, that radiates to her left flank also. She denies any hematuria. She does have some urinary frequency. She does have slight vaginal discharge. Patient states her last menstrual. Was more than a month ago and she is late on her period now. She also describes dysparunea today. States they had sex late last night and it was more painful than usual. she denies any nausea or vomiting. She states that the pain is making her feel dizzy. - Related Data Allergies/Adverse Reactions: No Known Allergies Allergy (Verified 06/27/18 13:22) Past Medical History - Social History Smoking Status: Never Smoker Chew tobacco use (# tins/day): No Frequency of alcohol use: Occasional Drug Abuse: None Family History: Reviewed & Not Pertinent Patient has suicidal ideation: No Patient has homicidal ideation: No - Past Medical History Cardiac Medical History: Reports: Hx Hypertension - PIH first preg Denies: Hx Heart Murmur Renal/ Medical History: Denies: Hx Kidney Stones, Hx Ovarian Cysts, Hx Peritoneal Dialysis, Hx Pelvic Inflammatory Disease Malignancy Medical History: Denies: Hx Breast Cancer, Hx Cervical Cancer, Hx Ovarian Cancer GI Medical History: Reports: Hx Gastroesophageal Reflux Disease. Denies: Hx Hiatal Hernia, Hx Ulcer Musculoskeletal Medical History: Denies Hx Fibromyalgia Traumatic Medical History: Reports: Hx Fractures - hx right radius Past Surgical History: Reports: Hx Section - x 2, Hx Oral Surgery - Immunizations Hx Diphtheria, Pertussis, Tetanus Vaccination: Yes Hx Pneumococcal Vaccination: 04/13/00 Review of Systems - Review of Systems Gastrointestinal: Abdominal pain. denies: Diarrhea, Nausea Genitourinary: Frequency. denies: Dysuria, Hematuria Female Genitourinary: Irregular period, Vaginal discharge -: Yes All other systems reviewed and negative Physical Exam - Vital signs Vitals: Temp Pulse Resp BP Pulse Ox 97.9 F 72 20 142/97 H 97 02/19/19 12:43 02/19/19 12:43 02/19/19 12:43 02/19/19 12:43 02/19/19 12:43 - General General appearance: Appears well, Alert - Respiratory Respiratory status: No respiratory distress Chest status: Nontender Breath sounds: Normal Chest palpation: Normal - Cardiovascular Rhythm: Regular Heart sounds: Normal auscultation Murmur: No - Abdominal Inspection: Normal Distension: No distension Bowel sounds: Normal Tenderness: Tender - Left suprapubic tenderness. No guarding or rebound. Organomegaly: No organomegaly - Genitourinary External exam: Normal Speculum exam: Vaginal discharge Vaginal bleeding: None Bimanuel exam: Adnexal tenderness - There is left adnexal tenderness. RN was service porter.. No: Cervical motion tender - Back Back: Normal, Nontender - Neurological Neuro grossly intact: Yes Cognition: Normal Orientation: AAOx4 López Coma Scale Eye Opening: Spontaneous López Coma Scale Verbal: Oriented López Coma Scale Motor: Obeys Commands [place] Coma Scale Total: 15 Speech: Normal Motor strength normal: LUE, RUE, LLE, RLE Sensory: Normal Course - Re-evaluation Re-evalutation: 02/19/19 13:30 Differential diagnosis includes vaginitis versus ovarian cyst versus ovarian torsion versus UTI versus ectopic if patient is . Doubt renal colic. 02/19/19 15:20 Patient is doing well. Labs and ultrasound report pending. Patient's care discussed with Dr. De La Vega. Signed out to Dr. De La Vega pending labs and ultrasound and disposition. - Vital Signs Vital signs: Temp Pulse Resp BP Pulse Ox 97.9 F 72 20 142/97 H 97 02/19/19 12:43 02/19/19 12:43 02/19/19 12:43 02/19/19 12:43 02/19/19 12:43 - Laboratory Result Diagrams: 02/19/19 14:12 02/19/19 14:12 Discharge - Discharge Clinical Impression: Pelvic pain Condition: Good Disposition: OTHER
[2019-02-19 13:45] LABS: T.VAGINALIS (WET MOUNT) NO TRICHOMONAS SEEN; WBCS (WET MOUNT) NO WBCS SEEN; YEAST (WET MOUNT) NO YEAST SEEN
[2019-02-19 15:04] LABS: AMORPHOUS SEDIMENT,URINE TRACE /HPF; APPEARANCE,URINE CLOUDY; BILIRUBIN,URINE NEGATIVE (NEGATIVE); COLOR,URINE YELLOW; GLUCOSE, URINE NEGATIVE (NEGATIVE); KETONES,URINE NEGATIVE (NEGATIVE); LEUKOCYTE ESTERASE,URINE NEGATIVE (NEGATIVE); NITRITE,URINE NEGATIVE (NEGATIVE); PROTEIN,URINE NEGATIVE (NEGATIVE); URINE SPECIFIC GRAVITY 1.014; UROBILINOGEN,URINE NEGATIVE mg/dL (<2.0)
[2019-02-19 15:13] LABS: ANION GAP 11 (5-19); BLOOD UREA NITROGEN 10 mg/dL (7-20); CALCIUM 9.7 mg/dL (8.4-10.2); CARBON DIOXIDE 25 mmol/L (22-30); CHLORIDE 107 mmol/L (98-107); GLUCOSE 86 mg/dL (75-110); POTASSIUM 4.3 mmol/L (3.6-5.0)
[2019-02-19 15:24] LABS: ABSOLUTE EOSINOPHILS # (AUTO) 0.1 10^3/uL (0.0-0.6); ABSOLUTE LYMPHOCYTES (AUTO) 2.4 10^3/uL (0.5-4.7); ABSOLUTE MONOCYTES (AUTO) 0.5 10^3/uL (0.1-1.4); ABSOLUTE NEUT (AUTO) 4.2 10^3/uL (1.7-8.2); BASOPHILS % (AUTO) 0.3 % (0-2); HEMATOCRIT 43.9 % (36.0-47.0); HEMOGLOBIN 15.2 g/dL (12.0-15.5); LYMPHOCYTES % (AUTO) 32.9 % (13-45); MEAN CORPUSCULAR HEMOGLOBIN 30.4 pg (27.0-33.4); MEAN CORPUSCULAR HGB CONC 34.7 g/dL (32.0-36.0); MEAN CORPUSCULAR VOLUME 88 fl (80-97); MONOCYTES % (AUTO) 6.5 % (3-13); PLATELET COUNT 321 10^3/uL (150-450); RED BLOOD COUNT 5.01 10^6/uL (3.72-5.28); RED CELL DISTRIBUTION WIDTH 12.4 % (11.5-14.0); SEGMENTED NEUTROPHILS % (AUTO) 58.3 % (42-78); TOTAL CELLS COUNTED % (AUTO) 100 %; WHITE BLOOD COUNT 7.3 10^3/uL (4.0-10.5)
--- NOTE | 2019-02-19 15:29 | RADIOLOGY REPORT (SQ) ---
EXAM DESCRIPTION: U/S NON OB PEL TV W/DOPPLER COMPLETED DATE/TIME: 02/19/2019 2:25 pm REASON FOR STUDY: Pelvic pain. ? ovarian torsion COMPARISON: None. TECHNIQUE: Dynamic and static grayscale images acquired of the pelvis via transvaginal approach and recorded on PACS. Additional selected color Doppler and spectral images recorded. LIMITATIONS: None. FINDINGS: UTERUS: The uterus is normal measuring 8.7 x 3.9 x 5.1 cm. ENDOMETRIAL STRIPE: The endometrium measures 10.4 mm. CERVIX: 0.7 cm nabothian cyst. Cervix is normal measuring 2.7 cm with RIGHT OVARY AND DOPPLER: The right ovary is normal measuring 2.9 x 1.7 x 2 cm. Small follicle measur ing 0.9 x 0.4 x 1.1 cm. Doppler flow the right ovary noted. LEFT OVARY AND DOPPLER: The left ovary measures 3.1 x 2.4 x 2.8 cm. Doppler flow the left ovary note d. Complex cyst left ovary measuring 2.2 x 1.9 x 2.4 cm. FREE FLUID: Free fluid noted in the cul de sac. OTHER: Prominent vessels in the adnexal regions. IMPRESSION: Evidence of complex left ovarian cyst measuring 2.2 x 1.9 x 2.4 cm. Moderate amount of free fluid in the cul de sac. Otherwise, normal pelvic ultrasound. TECHNICAL DOCUMENTATION: JOB ID: [id number] 2010 [email or web address]- All Rights Reserved Rev-08/28 Reading location - IP/workstation name: [email or web address]
[2019-02-19 16:58] VITALS: BP 128/89
== END 2019-02-19 16:57 | disposition other institution (70) ==
LOC: ER 12:38
DX: N83.202 Unspecified ovarian cyst, left side (principal); R10.2 Pelvic and perineal pain; R35.0 Frequency of micturition
CPT/HCPCS: 36415; 87210; 84702; 85025; 80048; 81001; 76830; 93976; J7040; 96360; 99284

== ENCOUNTER → 2019-05-30 | Outpatient (CLI) | payer BC ==
--- NOTE | 2019-05-30 17:18 | RADIOLOGY REPORT (SQ) ---
EXAM DESCRIPTION: U/S [id number] TRNABD 1GES W/ODOP COMPLETED DATE/TIME: 05/30/2019 3:29 pm REASON FOR STUDY: Z34.81 ENCOUNTER FOR SUPRVSN OF NORMAL , FIRST TRIMESTER Z34.81 ENCOUNTE R FOR SUPRVSN OF NORMAL , FIRST TRIM COMPARISON: None. TECHNIQUE: Transvaginal static and realtime grayscale images acquired of the pelvis. Additional jass cted spectral and color Doppler images recorded. All images stored on PACs. bHCG: Not available. CLINICAL DATES: LMP 04/04/2019. 8 weeks 0 days. LIMITATIONS: None. FINDINGS: FETUS: Single Living intrauterine . ULTRASOUND EGA: 5 weeks 2 days ULTRASOUND SILVIA: 01/28/2020 EFW: Not applicable less than 20 weeks. CRL: pole is not seen. FHR: heart motion is not seen. . SURVEY: No visualized anomalies. AMNIOTIC FLUID: Adequate amount. PLACENTA: Not yet developed due to early gestation. SUBCHORIONIC BLEED: No. SIZE OF BLEED: Not applicable. UTERUS: No masses. No anomalies. CERVICAL LENGTH: 2.7 cm. Closed. RIGHT ADNEXA: Normal ovary with normal vascular flow. 2.7 x 2 x 1.0 cm. No adnexal free fluid. No adnexal masses. LEFT ADNEXA: There is a complex cystic area measuring 2 cm. The ovary measures 3.1 x 3.4 x 2 cm. No adnexal free fluid. No adnexal masses. FREE FLUID: None. OTHER: No other significant finding. IMPRESSION: Questionable gestational sac suggesting an gestation of 5 weeks 2 days. pole is n ot seen. Follow-up as clinically indicated. TECHNICAL DOCUMENTATION: JOB ID: [id number] 2010 [email or web address]- All Rights Reserved rev-08/28 Reading location - IP/workstation name: [email or web address]
== END ==
LOC: RAD 14:38
PROVIDERS: ATTEND Midwife
DX: O34.81 Maternal care for other abnormalities of pelvic organs, first trimester (principal); N83.202 Unspecified ovarian cyst, left side; Z3A.01 Less than 8 weeks gestation of pregnancy
CPT/HCPCS: 76801

== ENCOUNTER 2019-06-03 10:41 | Emergency (ER) | payer BC, MEDICAID ==
[2019-06-03] MEDS ORDERED: RINGERS SOLUTION,LACTATED 1,000 ML IV ONE (11:00)
--- NOTE | 2019-06-03 11:14 | ER Document Report ---
ED General - General Stated Complaint: ABDOMINAL CRAMPING/VAGINAL BLEEDING Time Seen by Provider: 06/03/19 10:59 Primary Care Provider: ANDRES THEODORE CNM [NO LOCAL MD] - Follow up as needed Information source: Patient Notes: 29-year-old 3 para 2 presents with a first trimester approximately 6- week with bleeding for the past week. She has been seen at the health department on 2 separate occasions and quantitative hCGs have been done. She states that the bleeding became heavier today with bright red blood and bleeding through her tampon. She notes passage of some tissue-like material and concern about a possible spontaneous AB. TRAVEL OUTSIDE OF THE [place] IN LAST 30 DAYS: No - Related Data Allergies/Adverse Reactions: No Known Allergies Allergy (Verified 06/27/18 13:22) Past Medical History - General Information source: Patient - Social History Smoking Status: Unknown if Ever Smoked Family History: Reviewed & Not Pertinent - Past Medical History Cardiac Medical History: Reports: Hx Hypertension - PIH first preg Denies: Hx Heart Murmur Renal/ Medical History: Denies: Hx Kidney Stones, Hx Ovarian Cysts, Hx Peritoneal Dialysis, Hx Pelvic Inflammatory Disease Malignancy Medical History: Denies: Hx Breast Cancer, Hx Cervical Cancer, Hx Ovarian Cancer GI Medical History: Reports: Hx Gastroesophageal Reflux Disease. Denies: Hx Hiatal Hernia, Hx Ulcer Musculoskeletal Medical History: Denies Hx Fibromyalgia Traumatic Medical History: Reports: Hx Fractures - hx right radius Past Surgical History: Reports: Hx Section - x 2, Hx Oral Surgery - Immunizations Hx Diphtheria, Pertussis, Tetanus Vaccination: Yes Hx Pneumococcal Vaccination: 04/13/00 Review of Systems - Review of Systems Notes: Constitutional: Negative for fever. HENT: Negative for sore throat. Eyes: Negative for visual changes. Cardiovascular: Negative for chest pain. Respiratory: Negative for shortness of breath. Gastrointestinal: Negative for abdominal pain, vomiting or diarrhea. Genitourinary: + Vaginal bleeding, negative for dysuria. Musculoskeletal: + Back pain. Skin: Negative for rash. Neurological: Negative for headaches, weakness or numbness. 10 point ROS negative except as marked above and in HPI. Physical Exam - Vital signs Vitals: Temp Pulse Resp BP Pulse Ox 98.5 F 82 16 134/78 H 100 06/03/19 10:45 06/03/19 10:45 06/03/19 10:45 06/03/19 10:45 06/03/19 10:45 - Notes Notes: PHYSICAL EXAMINATION: Physical Exam: General: Well-nourished well-developed 29-year-old female in no acute distress HEENT: NC/AT, pupils equal round and reactive to light, MM moist,nares clear, oropharynx clear, airway patent Neck: supple, no adenopathy, no masses. Good range of motion Lungs: clear, no wheezing, no rales no rhonchi CVS: Regular rate and rhythm no murmur gallop or rub Abdomen: Soft, active, nontender, no masses, no hepatosplenomegaly Ext: No edema, clubbing or cyanosis. Neuro: Alert and responsive, moving all 4 extremities on command, cranial nerves intact, no focal findings Skin: Intact no open lesions, no rash PSYCH: Normal mood, normal affect. Course - Re-evaluation Re-evalutation: 06/03/19 13:30 Discussed the findings of the ultrasound and beta-hCG with the patient, noting that her hCG is 437. This is a decrease from the 750 which was noted at the health department earlier this week. I have explained to the patient she has had a spontaneous AB and that she will expelled a 5-week intrauterine sac without difficulties. She is given direction to return to the emergency department if she has increasing or uncontrolled pain, heavy bleeding or other concerns. The patient acknowledges an understanding of that plan and will return to the emergency department as needed. - Vital Signs Vital signs: Temp Pulse Resp BP Pulse Ox 98.5 F 74 18 104/65 99 06/03/19 14:25 06/03/19 14:25 06/03/19 14:25 06/03/19 14:25 06/03/19 14:25 - Laboratory Result Diagrams: 06/03/19 11:21 06/03/19 11:21 Laboratory results interpreted by me: 06/03/19 11:21 Beta HCG, Quant 430.37 H I have reviewed laboratory data and used this information for the treatment decisions regarding the patient. - Diagnostic Test Radiology reviewed: Image reviewed, Reports reviewed - OB ultrasound: No viable intrauterine is seen, gestational sac approximately 5-week and signs. Discharge - Discharge Clinical Impression: Spontaneous Condition: Good Disposition: HOME, SELF-CARE Instructions: Miscarriage ([facility]) Additional Instructions: You were diagnosed with a first trimester miscarriage in the emergency department today. It is likely that you will continue to have some vaginal bleeding and passage of the gestational sac. You may use ibuprofen or Tylenol for pain. Please return to the emergency department if your pain is uncontrollable or if your bleeding is extreme. Follow-up with the health department on Thursday continuing to have any concerns or difficulties. Referrals: ANDRES THEODORE CNM [NO LOCAL MD] - Follow up as needed
[2019-06-03 11:36] LABS: ABSOLUTE EOSINOPHILS # (AUTO) 0.1 10^3/uL (0.0-0.6); ABSOLUTE LYMPHOCYTES (AUTO) 1.7 10^3/uL (0.5-4.7); ABSOLUTE MONOCYTES (AUTO) 0.5 10^3/uL (0.1-1.4); ABSOLUTE NEUT (AUTO) 6.2 10^3/uL (1.7-8.2); BASOPHILS % (AUTO) 0.1 % (0-2); EOSINOPHILS % (AUTO) 1.4 % (0-6); HEMATOCRIT 41.4 % (36.0-47.0); HEMOGLOBIN 14.5 g/dL (12.0-15.5); LYMPHOCYTES % (AUTO) 19.8 % (13-45); MEAN CORPUSCULAR HEMOGLOBIN 30.5 pg (27.0-33.4); MEAN CORPUSCULAR HGB CONC 35.2 g/dL (32.0-36.0); MEAN CORPUSCULAR VOLUME 87 fl (80-97); MONOCYTES % (AUTO) 6.1 % (3-13); PLATELET COUNT 314 10^3/uL (150-450); RED BLOOD COUNT 4.77 10^6/uL (3.72-5.28); RED CELL DISTRIBUTION WIDTH 12.7 % (11.5-14.0); SEGMENTED NEUTROPHILS % (AUTO) 72.6 % (42-78); TOTAL CELLS COUNTED % (AUTO) 100 %; WHITE BLOOD COUNT 8.5 10^3/uL (4.0-10.5)
[2019-06-03 11:59] LABS: ANION GAP 10 (5-19); BLOOD UREA NITROGEN 11 mg/dL (7-20); CALCIUM 9.4 mg/dL (8.4-10.2); CARBON DIOXIDE 25 mmol/L (22-30); CHLORIDE 104 mmol/L (98-107); GLUCOSE 90 mg/dL (75-110); POTASSIUM 4.3 mmol/L (3.6-5.0)
--- NOTE | 2019-06-03 12:45 | RADIOLOGY REPORT (SQ) ---
EXAM DESCRIPTION: U/S OB TRANSVAG W/DOPPLER COMPLETED DATE/TIME: 06/03/2019 12:27 pm REASON FOR STUDY: 6 wks ,health department, bleed/viability COMPARISON: None. TECHNIQUE: Transvaginal static and realtime grayscale images acquired of the pelvis. Additional jass cted spectral and color Doppler images recorded. All images stored on PACs. bHCG: Pending. CLINICAL DATES: SILVIA: 01/27/2020. EGA: 6 weeks 0 days LIMITATIONS: None. FINDINGS: FETUS: Not visualized sonographically. ULTRASOUND EGA: 5 weeks 5 days ULTRASOUND SILVIA: 01/29/2020 EFW: Not applicable less than 20 weeks. GESTATIONAL SAC: 1.0 cm. The gestational sac is irregularly-shaped located in the fundus of the betina matt. CRL: Not visualized FHR: Not visualized. SURVEY: Not evaluated. AMNIOTIC FLUID: Not evaluated. PLACENTA: Not yet developed due to early gestation. SUBCHORIONIC BLEED: No. SIZE OF BLEED: Not applicable. UTERUS: The uterus measures 9.9 x 5.5 x 7.3 cm. CERVICAL LENGTH: 3.0 cm Closed. RIGHT ADNEXA: Not visualized sonographically due to overlying bowel gas. LEFT ADNEXA: Not visualized sonographically due to overlying bowel gas. FREE FLUID: Trace amount of free fluid in the posterior cul-de-sac. OTHER: No other significant finding. IMPRESSION: 1. An INTRAUTERINE living is not visualized sonographically. Gestational sac is identified within the fundus of the uterus which has an irregular shape. The gestational sac cor relates to an EGA of 5 weeks 5 days. Correlation suggested, correlation with lab values and short-te follow-up examination for re- evaluation. Trimester of : First trimester - 0 to 13 weeks. TECHNICAL DOCUMENTATION: JOB ID: [id number] 2010 [employer]- All Rights Reserved rev-08/28 Reading location - IP/workstation name: [email or web address]
[2019-06-03 14:25] VITALS: BP 104/65
== END 2019-06-03 14:25 | disposition home or self-care (01) ==
LOC: ER 10:41
DX: O03.9 Complete or unspecified spontaneous abortion without complication (principal); M54.9 Dorsalgia, unspecified
CPT/HCPCS: 36415; 84702; 85025; 80048; 76817; 93976; J7120; 96360; 96361; 99284

== ENCOUNTER → 2019-12-29 | Outpatient (CLI) | payer BC, MEDICAID ==
--- NOTE | 2019-12-29 11:15 | WOMENS IMAGING REPORT ---
EXAM DESCRIPTION: U/S ABDOMEN LIMITED IMAGES COMPLETED DATE/TIME: 12/29/2019 10:36 am REASON FOR STUDY: RUQ ABDOMINAL PAIN R10.11 RIGHT UPPER QUADRANT PAIN COMPARISON: None. TECHNIQUE: Dynamic and static grayscale images acquired of the abdomen and recorded on PACS. Additio nal selected color Doppler and spectral images recorded. LIMITATIONS: None. FINDINGS: PANCREAS: No masses. Visualized pancreatic duct normal caliber. LIVER: No masses. Echotexture normal. LIVER VASCULATURE: Normal directional flow of the main portal vein and hepatic veins. GALLBLADDER: No stones. Normal wall thickness. No pericholecystic fluid. ULTRASOUND-DETECTED RAMOS'S SIGN: Negative. INTRAHEPATIC DUCTS AND COMMON DUCT: CBD and intrahepatic ducts normal caliber. No filling defects. INFERIOR VENA CAVA: Normal flow. AORTA: No aneurysm. RIGHT KIDNEY: Normal size. Normal echogenicity. No solid or suspicious masses. No hydronephrosis. No calcifications. PERITONEAL AND RIGHT PLEURAL SPACE: No ascites or effusions. OTHER: No other significant findings. IMPRESSION: NORMAL RIGHT UPPER QUADRANT ULTRASOUND. TECHNICAL DOCUMENTATION: JOB ID: [id number] [employer]- All Rights Reserved Reading location - IP/workstation name: [email or web address]
--- NOTE | 2019-12-29 15:40 | RADIOLOGY REPORT (SQ) ---
EXAM DESCRIPTION: NM HIDA SCAN WITH CCK IMAGES COMPLETED DATE/TIME: 12/29/2019 3:29 pm REASON FOR STUDY: RUQ PAIN R10.11 RIGHT UPPER QUADRANT PAIN COMPARISON: None. RADIONUCLIDE AND DOSE: DOSAGE RADIONUCLIDE: 5.2 millicuries Tc99m Mebrofenin. DOSAGE CCK: 1.6 micrograms. DOSAGE MORPHINE: Not required. The route of agent administration: Intravenous TECHNIQUE: Serial imaging right upper quadrant up to 60 minutes following injection of radionuclide. CCK injected after gallbladder visualized. LIMITATIONS: None. FINDINGS: LIVER: Normal visualization without areas of photopenia. INTRA AND EXTRAHEPATIC BILE DUCTS: Normal accumulation of activity. GALLBLADDER: Normal visualization. Calculated Ejection Fraction of 16%. Below the normal value of 35 % or greater. PHYSICAL RESPONSE: Patients presenting complaint was reproduced. OTHER: No other significant finding. IMPRESSION: LOW GALLBLADDER EJECTION FRACTION. EVIDENCE FOR BILIARY DYSKINESIS. NO CYSTIC OR COMMO N DUCT OBSTRUCTION. TECHNICAL DOCUMENTATION: JOB ID: [id number] 2010 [employer]- All Rights Reserved Reading location - IP/workstation name: [email or web address]
== END ==
LOC: RAD 09:49
PROVIDERS: ATTEND Nurse Practitioner Family
DX: K82.8 Other specified diseases of gallbladder (principal); R10.11 Right upper quadrant pain
CPT/HCPCS: 78227; 76705; J2805; A9537; Q9969

== ENCOUNTER 2020-01-25 09:28 | Day surgery (SDC) | payer BC, MEDICAID ==
[2020-01-20 09:51] LABS: HEMATOCRIT 39.9 % (36.0-47.0); HEMOGLOBIN 14.1 g/dL (12.0-15.5); MEAN CORPUSCULAR HEMOGLOBIN 30.6 pg (27.0-33.4); MEAN CORPUSCULAR HGB CONC 35.3 g/dL (32.0-36.0); MEAN CORPUSCULAR VOLUME 87 fl (80-97); PLATELET COUNT 300 10^3/uL (150-450); RED BLOOD COUNT 4.62 10^6/uL (3.72-5.28); RED CELL DISTRIBUTION WIDTH 12.5 % (11.5-14.0); WHITE BLOOD COUNT 7.7 10^3/uL (4.0-10.5)
[2020-01-20 10:19] LABS: ALBUMIN 4.4 g/dL (3.5-5.0); ALKALINE PHOSPHATASE 41 U/L (38-126); AMYLASE 41 U/L (30-110); ANION GAP 10 (5-19); ASPARTATE AMINO TRANSFERASE 23 U/L (14-36); BILIRUBIN,DIRECT 0.2 mg/dL (0.0-0.4); BILIRUBIN,TOTAL 0.4 mg/dL (0.2-1.3); BLOOD UREA NITROGEN 12 mg/dL (7-20); CALCIUM 9.3 mg/dL (8.4-10.2); CARBON DIOXIDE 23 mmol/L (22-30); CHLORIDE 108 mmol/L (98-107); GLUCOSE 83 mg/dL (75-110)
[~2020-01-25 09:28] MED LIST: ACETAMINOPHEN 325 MG TABLET PO PRN; CEFAZOLIN 1 GM/D5W RTU 1 GM/50 ML RTUPB IV PRN; LACTATED RINGERS 1000 ML IV PRN; LIDOCAINE 0.5% INJ-PF (5 MG/ML) 50 ML SDV SUBCUT PRN
[2020-01-25] MEDS ORDERED: CEFAZOLIN 1 GM/D5W RTU 1 GM/50 ML RTUPB IV ONE (09:30)
[2020-01-25] MEDS ORDERED: BUPIVACAINE HCL 0.25 % INJ/PF (2.5 MG/1 ML) 30 ML VIAL ONE (10:31)
[2020-01-25] MEDS ORDERED: FENTANYL CITRATE INJ/PF 250 MCG/5 ML AMPULE ONE (10:31)
[2020-01-25] MEDS ORDERED: MIDAZOLAM 2 MG/2 ML INJ ONE (10:31)
[2020-01-25] MEDS ORDERED: PROPOFOL INJ 200 MG/20 ML VIAL IV ONE (10:31)
[2020-01-25] MEDS ORDERED: MEPERIDINE HCL/PF INJ 25 MG/1 ML DISP.SYRIN IV PRN (11:21)
[2020-01-25] MEDS ORDERED: PROMETHAZINE HCL INJ 25 MG/1 ML VIAL IV PRN ×2 (11:21)
[2020-01-25] MEDS ORDERED: DIPHENHYDRAMINE HCL 50 MG/ML VIAL IV PRN (11:21)
[2020-01-25] MEDS ORDERED: FENTANYL CITRATE INJ/PF 100 MCG/2 ML AMPUL IV PRN ×3 (11:21)
[2020-01-25] MEDS ORDERED: OXYCODONE-ACETAMINOPHEN 5-325 MG TABLET PO PRN ×3 (11:21→11:52)
--- NOTE | 2020-01-25 11:51 | Operative Report ---
Operative Report DATE OF SURGERY: 01/25/20 PREOPERATIVE DIAGNOSIS: Chronic cholecystitis POSTOPERATIVE DIAGNOSIS: Same OPERATION: Laparoscopic cholecystectomy SURGEON: MADHAVI JIM 1ST STRIP PICKER: ZAC ANGEL ANESTHESIA: GA TISSUE REMOVED OR ALTERED: 1 gallbladder with contents COMPLICATIONS: None ESTIMATED BLOOD LOSS: Scant INTRAOPERATIVE FINDINGS: See below PROCEDURE: Patient was taken to the preop holding area to the main operating room and general anesthesia was induced. His were abducted, abdomen exposed, prepped and draped in sterile fashion. Surgical plan and surgical timeout were conducted. Markings were made on the skin for for port laparoscopy. All sites were anesthetized with 1% plain lidocaine. A vertical incision was made over the umbilicus a Veress needle inserted the peritoneal cavity, pneumoperitoneum was established. Veress needle removed, and a 5 mm port was inserted the peritoneal cavity. The flexible 5 mm Endo I scope was inserted into the peritoneal cavity and there was no evidence of vascular or visceral injury. Under direct visualization, 3 additional ports were placed one in the subxiphoid and 2 in the subcostal position. Findings were significant for normal hepatobiliary anatomy. Graspers were placed in the gallbladder body and infundibulum. The neck of the gallbladder and its junction with the cystic duct was dissected out. Of note there were dense adhesions between the lower portion of the gallbladder and the hepatoduodenal area. These were taken down using a combination of blunt and gentle electrocautery dissection. Eventually we had the cystic duct and cystic artery exposed. The cystic artery was clipped twice proximally in conjunction with the cystic vein and divided. The triangle of Calot was opened widely. Photos were taken. The critical view was obtained. We were confident we were now about to divide the cystic duct. The cystic duct was clipped once proximally 2 times distally, then divided with scissors. The gallbladder was elevated off of the liver bed using hook cautery dissection. This proceeded uneventfully. The gallbladder was brought to the patient to the supraumbilical port site with minimal stretch of the 5 mm port site. The specimen was sent to pathology permanent analysis We returned the peritoneal cavity check for bleeding and there was none. Visualization of the remainder the peritoneal cavity revealed some adhesions between the omentum and the anterior abdominal wall to the right of midline. There was no evidence of bile spillage. We revisited the cystic artery and cystic duct stumps, and found no evidence of bile or blood leaking, and clips intact. Conclusion photo taken. We leveled the patient out, evacuated pneumoperitoneum, removed all ports and closed ports with 3-0 Vicryl, benzoin and Steri-Strips. Patient tolerated the procedure well, extubated, taken to recovery room in stable condition. The physician licensed sales assistant, Ms. Ferrera, provided assistance during this case by: Assisting and port insertion, retracting tissue, instillation of local anesthesia and closure of skin incisions.
--- NOTE | 2020-01-25 11:52 | Discharge Summary ---
Discharge Summary (SDC) - Discharge Final Diagnosis: biliary dyskinesia Date of Surgery: 01/25/20 Discharge Date: 01/25/20 Forms: ASU Anesthesia D/C Instruction, Discharge POC-Surgical Service Treatment or Instructions: [facility] [address] [place] [id number] Discharge Instructions: Laparoscopic Surgery 1. General Information: a. DO NOT DRIVE a car or operate dangerous machinery for 3-4 days or while taking pain pills. b. DO NOT consume alcohol, tranquilizers, sleeping medications or any non- prescribed medications for 24 hours unless approved by your doctor or as long as taking narcotic prescription medications. c. DO NOT make important decisions or sign any important papers for the first 24 hours after surgery. d. When discharged home the same day of surgery have a responsible person with you for the first night. 2. Activity Restrictions: 2 weeks a. NO heavy lifting, straining abdominal muscles, bending over a lot, yard work, house work, or sports for [address] NOT drive for 3-4 days . c. It is fine to go for walks, up and down steps, ride in a car. d. Elevate your head when sleeping/resting. 3. Treatment: a. You may shower 24 hours after surgery, no baths or swimming for 2 weeks. Remove band-aids or dressings before shower but leave paper strips (steri- strips) on the skin to fall off on their own. If still on at postoperative visit they will be removed then. b. Drainage of fluid or blood is not unusual from an incision. If occurs, you can clean with peroxide and cotton ball daily and cover with dry gauze until the wound seals. c. If a lot of bleeding occurs, you can hold pressure with a gauze or cloth over the site for 10 minutes and it will usually stop. If bleeding continues you will need to call for possible evaluation in office or emergency room. 4. Medications: a. _Toradol may be taken for pain as needed, one tablet every 6 hours. Do not take additional NSAIDs with medication. You may take Tylenol as needed. b. You should resume all normal medications unless a change is specified by your doctors. 5. Diet: Begin with clear liquids and may progress to your normal diet if not nauseated. No high fat, high protein foods the day of surgery. 6. The following may occur after laparoscopic surgery: a. Shoulder or upper back ache from retained gas that should resolve in 1-2 days b. Soreness and bruising at incision sites will resolve with time. c. Scrotal swelling (labia in women) and bruising is often seen after hernia surgery. d. Sore throat e. Fatigue may last days to weeks. f. Difficulty urinating may occur and may need to come into emergency room for urinary catheter placement. 7. Notify Physician If: a. Worsening or pain not improved with pain medication b. Persistent nausea and vomiting c. Fever above 101 d. Persistent bleeding or swelling at operative site e. Unable to urinate and uncomfortable bladder 6-8 hours after surgery 8..Follow Up Care: a. Schedule a follow up appointment with your doctor for 2 weeks. In the event of any postoperative problems or questions or you may call the office during business hours or the On-Call physician evenings and weekends at [facility]. [facility] I understand the instructions for my postoperative care as described above and a copy has been given to me. Patient/Significant Other Witness Date Prescriptions: Ketorolac Tromethamine [Toradol 10 mg Tablet] 10 mg PO Q6HP PRN #20 tablet PRN Reason: Referrals: MADHAVI JIM MD [ACTIVE STAFF] - Discharge Diet: Other (Comments) - small bland portions then progress Discharge Activity: Balance Activity w/Rest Report the Following to Your Physician Immediately: Nausea, Vomiting, Increase in Pain, Fever over 101 Degrees, Unusual Bleeding, Redness, Swelling, Warmth, Drainage-Foul Smelling
[2020-01-25] MEDS ORDERED: OXYCODONE-ACETAMINOPHEN 5-325 MG TABLET ONE ×2 (12:17→12:25)
[2020-01-25] MEDS ORDERED: KETOROLAC TROMETHAMINE INJ/PF 30 MG/1 ML SDV ONE (13:18)
[2020-01-25] MEDS ORDERED: SIMETHICONE 80 MG TAB.CHEW ONE (13:18)
[2020-01-25] MEDS ORDERED: ACETAMINOPHEN 1,000 MG/100 ML RTUPB IV ONE (13:19)
[2020-01-25 14:06] VITALS: BP 121/84
[2020-01-25] MEDS ORDERED: GLYCOPYRROLATE 1 MG/5 ML VIAL ONE (15:11)
[2020-01-25] MEDS ORDERED: KETOROLAC TROMETHAMINE 60 MG/2 ML SDV ONE (15:11)
[2020-01-25] MEDS ORDERED: DEXAMETHASONE SOD PHOSPHATE INJ 4 MG/1 ML VIAL ONE (15:11)
[2020-01-25] MEDS ORDERED: SUCCINYLCHOLINE CHLORIDE INJ 200 MG/10 ML VIAL ONE (15:11)
[2020-01-25] MEDS ORDERED: ONDANSETRON HCL INJ/PF 4 MG/2 ML SDV ONE (15:11)
== END 2020-01-25 14:40 | disposition home or self-care (01) ==
LOC: OROUT 09:28
PROVIDERS: ATTEND Surgery
DX: K80.10 Calculus of gallbladder with chronic cholecystitis without obstruction (principal); Z03.818 Encounter for observation for suspected exposure to other biological agents ruled out; K59.09 Other constipation; Z79.899 Other long term (current) drug therapy
CPT/HCPCS: 36415; 82150; 85027; 81025; 80076; 80048; 88304 ×2; 47562; U0003; J2250; J0690; J1100; J1885 ×2; J3010; J0330; J2405; J2704; J0131; J3490; C9803; 87635